=== PATIENT | female | born 1970 | race Hispanic/Latino ===

== ENCOUNTER 2017-05-04 06:09 | Day surgery (SDC) | payer MEDICAID ==
[~2017-05-04] VITALS: Ht 154.9 cm; Wt 77.5 kg
[~2017-05-04 06:09] MED LIST: ESOM40CA PO; IBUP-2077 PO; LACT10SO PO; LEVO125 PO
[2017-05-04 06:25] VITALS: BP 139/77
[2017-05-04] MEDS ORDERED: SODIUM CHLORIDE 0.9% 1000ML 1,000 ML IV ONE (06:40)
[2017-05-04] MEDS ORDERED: PROPOFOL 10 MG/ML 20ML VIAL IV ONE ×2 (08:23)
[2017-05-04 08:37] VITALS: BP 121/82
[2017-05-04] MEDS ORDERED: ONDANSETRON HCL 4 MG/2 ML VIAL ONE (09:03)
== END 2017-05-04 09:29 | disposition home or self-care (01) ==
LOC: DAH 06:09
PROVIDERS: ATTEND Internal Medicine
DX: D12.2 Benign neoplasm of ascending colon (principal); D12.4 Benign neoplasm of descending colon; K29.50 Unspecified chronic gastritis without bleeding; E03.9 Hypothyroidism, unspecified; Z98.890 Other specified postprocedural states; Z79.899 Other long term (current) drug therapy; Z90.49 Acquired absence of other specified parts of digestive tract; Z68.33 Body mass index [BMI] 33.0-33.9, adult
CPT/HCPCS: 43239; 45380; 45385; 88305; 88341; 88342; 91035; A4606; A4649; J2405; J2704 ×2; J7030

== ENCOUNTER 2017-05-06 20:15 | Emergency (ER) | payer MEDICAID ==
[2017-05-06 20:45] LABS: BASOPHILS % (AUTO) 0.4 % (0.0-5.0); EOSINOPHILS % (AUTO) 2.1 % (0.0-8.0); HEMATOCRIT 39.3 % (36-48); LYMPHOCYTES % (AUTO) 20.8 % (21.0-51.0); MEAN CORPUSCULAR HEMOGLOBIN 30.7 pg (27.0-33.0); MEAN CORPUSCULAR HGB CONC 34.5 g/dL (32.0-36.0); MEAN CORPUSCULAR VOLUME 89.1 fL (79-99); MONOCYTES % (AUTO) 9.6 % (3.0-13.0); NEUTROPHILS % (AUTO) 67.1 % (40.0-77.0); PLATELET COUNT (AUTO) 262 K/uL (130-400); RED BLOOD CELL COUNT(AUTO) 4.41 MIL/uL (4.00-5.50); RED CELL DISTRIBUTION WIDTH 12.3 % (11.0-15.5); WHITE BLOOD COUNT (AUTO) 8.8 K/uL (4.8-10.8)
[2017-05-06 20:55] LABS: CREATININE 0.6 mg/dL (0.5-1.5); POTASSIUM 3.9 mmol/L (3.5-5.1)
[2017-05-06 20:56] LABS: AMYLASE 57 U/L (25-115); LIPASE 275 U/L (114-286)
[2017-05-06 20:59] LABS: ALBUMIN 3.8 g/dL (3.5-5.0); BILIRUBIN,TOTAL 0.3 mg/dL (0.2-1.0); TOTAL PROTEIN, SERUM 8.2 g/dL (6.0-8.3)
[2017-05-06 21:39] LABS: APPEARANCE,URINE Clear (CLEAR); BILIRUBIN,URINE Negative (NEGATIVE); COLOR,URINE Yellow (YELLOW); GLUCOSE, URINE (UA) Negative (NEGATIVE); KETONES,URINE Negative (NEGATIVE); LEUKOCYTE ESTERASE ,URINE Negative (NEGATIVE); NITRATE,URINE Negative (NEGATIVE); OCCULT BLOOD,URINE Negative (NEGATIVE); PROTEIN,URINE Negative (NEGATIVE)
[2017-05-06] MEDS ORDERED: ONDANSETRON HCL 4 MG/2 ML VIAL ONE (22:46)
[2017-05-06] MEDS ORDERED: FAMOTIDINE/PF 20 MG/2 ML VIAL IV ONE (22:46)
[2017-05-06] MEDS ORDERED: MORPHINE SULFATE 2 MG/ML 1ML SYG ONE (22:46)
[2017-05-07] MEDS ORDERED: KETOROLAC TROMETHAMINE 15MG/ML ONE (01:21)
== END 2017-05-07 03:02 | disposition home or self-care (01) ==
LOC: EDH 20:15
DX: R10.13 Epigastric pain (principal); R11.2 Nausea with vomiting, unspecified; E07.9 Disorder of thyroid, unspecified
CPT/HCPCS: 36415; 71045; 74021; 74176; 80053; 81003; 82150; 83690; 84484; 85025; 93005; 96374; 96375; 99285; J1885; J2405; J3490

== ENCOUNTER 2021-04-07 14:51 | Observation (INO) | payer MEDICAID ==
[~2021-04-07] VITALS: Ht 154.9 cm; Wt 73.5 kg
[~2021-04-07 14:51] MED LIST changes: -LACT10SO PO; +LACT10SO5 PO
[2021-04-07 16:30] LABS: BASOPHILS % (AUTO) 0.4 % (0.0-5.0); EOSINOPHILS % (AUTO) 1.6 % (0.0-8.0); HEMATOCRIT 42.2 % (36-48); LYMPHOCYTES % (AUTO) 16.5 % (21.0-51.0); MEAN CORPUSCULAR HEMOGLOBIN 30.8 pg (27.0-33.0); MEAN CORPUSCULAR HGB CONC 33.4 g/dL (32.0-36.0); MEAN CORPUSCULAR VOLUME 92.1 fL (79-99); MONOCYTES % (AUTO) 7.2 % (3.0-13.0); PLATELET COUNT (AUTO) 236 K/uL (130-400); RED BLOOD CELL COUNT(AUTO) 4.58 MIL/uL (4.00-5.50); RED CELL DISTRIBUTION WIDTH 12.5 % (11.0-15.5)
[2021-04-07] MEDS ORDERED: MORPHINE 2 MG SYG IVP ONE (16:30)
[2021-04-07] MEDS ORDERED: ONDANSETRON 4MG INJ IVP ONE (16:30)
[2021-04-07 16:33] LABS: APPEARANCE,URINE Cloudy (CLEAR); BILIRUBIN,URINE Negative (NEGATIVE); COLOR,URINE Yellow (YELLOW); GLUCOSE, URINE (UA) Negative (NEGATIVE); KETONES,URINE Trace mg/dL (NEGATIVE); LEUKOCYTE ESTERASE ,URINE Trace (NEGATIVE); NITRATE,URINE Negative (NEGATIVE); OCCULT BLOOD,URINE Negative (NEGATIVE); PH,URINE 5.5 (5.0-8.0); PROTEIN,URINE Negative (NEGATIVE)
[2021-04-07 16:38] LABS: CREATININE 0.5 mg/dL (0.5-1.5); POTASSIUM 4.1 mmol/L (3.5-5.1)
[2021-04-07 16:42] LABS: ALBUMIN 4.2 g/dL (3.5-5.0); BILIRUBIN,TOTAL 0.4 mg/dL (0.2-1.0); TOTAL PROTEIN, SERUM 8.1 g/dL (6.0-8.3)
[2021-04-07 16:57] LABS: BACTERIA,URINE Few /HPF (None Seen); MUCUS,URINE Few LPF (None Seen); RBC,URINE 0-1 /HPF (0-1); SQUAMOUS EPITHELIAL CELL,UR Moderate /HPF (0-2)
[2021-04-07] MEDS ORDERED: KETOROLAC 30MG VIAL (30MG/ML) IV ONE (18:00)
[2021-04-07] MEDS ORDERED: HYDROMORPHONE 0.5 MG SYG (0.5MG/0.5ML) IVP ONE (20:30)
[2021-04-07] MEDS: LACTATED RINGERS 1000ML 1,000 ML IV SCH (21:00)
[2021-04-07] MEDS ORDERED: ACETAMINOPHEN 325 MG TAB PO PRN (21:00)
[2021-04-07] MEDS ORDERED: KETOROLAC 30MG VIAL (30MG/ML) IM PRN (21:00)
[2021-04-07] MEDS ORDERED: MORPHINE 2 MG SYG IV PRN (21:00)
[2021-04-07] MEDS: ONDANSETRON 4MG INJ IV PRN (23:15)
[2021-04-07] MEDS ORDERED: LEVO137T2 PO (23:57)
[2021-04-07] MEDS ORDERED: CHOL500050 PO (23:57)
[2021-04-07] MEDS ORDERED: ALEN70TA80 PO (23:57)
[2021-04-07] MEDS ORDERED: SOLI10TA7 PO (23:57)
[2021-04-07] MEDS ORDERED: TRAM-355 PO (23:57)
[2021-04-07] MEDS ORDERED: OMEP40CA21 PO (23:57)
[2021-04-07] MEDS ORDERED: LINA72CA PO (23:57)
[2021-04-08] MEDS: ONDANSETRON 4MG INJ IV PRN ×3 (05:45→20:09)
[2021-04-08 05:51] LABS: BASOPHILS % (AUTO) 0.4 % (0.0-5.0); EOSINOPHILS % (AUTO) 1.2 % (0.0-8.0); HEMATOCRIT 40.3 % (36-48); LYMPHOCYTES % (AUTO) 18.2 % (21.0-51.0); MONOCYTES % (AUTO) 9.3 % (3.0-13.0); NEUTROPHILS % (AUTO) 70.7 % (40.0-77.0); PLATELET COUNT (AUTO) 208 K/uL (130-400); RED BLOOD CELL COUNT(AUTO) 4.43 MIL/uL (4.00-5.50); RED CELL DISTRIBUTION WIDTH 12.2 % (11.0-15.5); WHITE BLOOD COUNT (AUTO) 4.9 K/uL (4.8-10.8)
[2021-04-08 06:42] LABS: CREATININE 0.5 mg/dL (0.5-1.5); MAGNESIUM 2.1 mg/dL (1.80-2.40); PHOSPHORUS 3.6 mg/dL (2.5-4.9); THYROID STIMULATING HORMONE 0.62 uIU/mL (0.36-3.74)
[2021-04-08] MEDS: PANTOPRAZOLE 40 MG/VIAL IVP SCH (09:08)
[2021-04-08] MEDS: LACTATED RINGERS 1000ML 1,000 ML IV SCH ×2 (09:08→20:26)
[2021-04-08] MEDS ORDERED: POLYETHYLENE GLYCOL 3350 17 GM POWD.PACK PO SCH (11:30)
[2021-04-08] MEDS ORDERED: DOCUSATE SODIUM 100 MG CAP PO SCH (11:30)
[2021-04-08] MEDS: CEFTRIAXONE 1G VIAL IVP SCH (12:13)
[2021-04-08 17:00] VITALS: BP 134/80
[2021-04-08] MEDS ORDERED: CHOLECALCIFEROL 1250 MCG PO SCH (19:00)
[2021-04-08 19:50] VITALS: BP 135/89
[2021-04-08] MEDS: HYDROMORPHONE 1 MG INJ IV PRN (20:18)
[2021-04-08 23:28] VITALS: BP 113/67
[2021-04-09] VITALS (20 sets, daily range): BP systolic 107–125; BP diastolic 57–82
[2021-04-09 06:25] LABS: BASOPHILS % (AUTO) 0.3 % (0.0-5.0); EOSINOPHILS % (AUTO) 1.6 % (0.0-8.0); HEMATOCRIT 43.5 % (36-48); LYMPHOCYTES % (AUTO) 21.6 % (21.0-51.0); MEAN CORPUSCULAR HEMOGLOBIN 30.6 pg (27.0-33.0); MEAN CORPUSCULAR HGB CONC 32.9 g/dL (32.0-36.0); MEAN CORPUSCULAR VOLUME 92.9 fL (79-99); MONOCYTES % (AUTO) 8.3 % (3.0-13.0); NEUTROPHILS % (AUTO) 67.9 % (40.0-77.0); PLATELET COUNT (AUTO) 261 K/uL (130-400); RED BLOOD CELL COUNT(AUTO) 4.68 MIL/uL (4.00-5.50); RED CELL DISTRIBUTION WIDTH 12.2 % (11.0-15.5); WHITE BLOOD COUNT (AUTO) 7.1 K/uL (4.8-10.8)
[2021-04-09] MEDS ORDERED: LEVOTHYROXINE 25 MCG TABLET PO SCH (06:30)
[2021-04-09] MEDS ORDERED: LEVOTHYROXINE 125 MCG TABLET PO SCH (06:30)
[2021-04-09 06:36] LABS: CREATININE 0.6 mg/dL (0.5-1.5); MAGNESIUM 2.5 mg/dL (1.80-2.40); POTASSIUM 3.8 mmol/L (3.5-5.1)
[2021-04-09] MEDS ORDERED: NON-FORMULARY MEDICATION 1 EACH (Omeprazole 40 MG) PO SCH (09:00)
[2021-04-09] MEDS ORDERED: POLYETHYLENE GLYCOL 3350 17 GM POWD.PACK PO SCH (09:00)
[2021-04-09] MEDS ORDERED: Solifenacin Succinate 10 MG PO SCH (09:00)
[2021-04-09] MEDS: PANTOPRAZOLE 40 MG/VIAL IVP SCH (09:39)
[2021-04-09] MEDS: ONDANSETRON 4MG INJ IV PRN (09:51)
[2021-04-09] MEDS: HYDROMORPHONE 1 MG INJ IV PRN (09:52)
[2021-04-09] MEDS ORDERED: PROPOFOL 10 MG/ML 20ML VIAL IV ONE (12:14)
[2021-04-09] MEDS: CEFTRIAXONE 1G VIAL IVP SCH (13:26)
[2021-04-15] MEDS ORDERED: Alendronate Sodium 70 MG PO SCH (06:30)
== END 2021-04-09 18:57 | disposition home or self-care (01) ==
LOC: EDH 14:51 → EDHIP 14:52 → 3BH 04-08 16:58 → 3CH 04-09 11:48
PROVIDERS: ADMIT Internal Medicine; ATTEND Internal Medicine
DX: K44.9 Diaphragmatic hernia without obstruction or gangrene (principal); K29.70 Gastritis, unspecified, without bleeding; K76.0 Fatty (change of) liver, not elsewhere classified; K83.8 Other specified diseases of biliary tract; R93.2 Abnormal findings on diagnostic imaging of liver and biliary tract; E03.9 Hypothyroidism, unspecified; E78.00 Pure hypercholesterolemia, unspecified; R11.2 Nausea with vomiting, unspecified; Z20.822 Contact with and (suspected) exposure to COVID-19; E78.5 Hyperlipidemia, unspecified; I10 Essential (primary) hypertension; K31.89 Other diseases of stomach and duodenum; M81.0 Age-related osteoporosis without current pathological fracture; F17.210 Nicotine dependence, cigarettes, uncomplicated; Z90.49 Acquired absence of other specified parts of digestive tract; Z90.710 Acquired absence of both cervix and uterus
CPT/HCPCS: 36415 ×3; 43239; 74176; 76705; 80048 ×2; 80053; 81001; 82948; 83690; 83735 ×2; 84100; 84145; 84443; 85025 ×3; 85651; 86140; 87635; 88305; 88341; 88342; 96361 ×2; 96372; 96374; 96375 ×2; 96376 ×3; 99285; A4215; A4222; A4223; A4606; A4620; A4657; G0378 ×44; J0696 ×2; J1170 ×4; J1885 ×2; J2405 ×6; J3490; J7120; S0164 ×2; C9113; J2704

== ENCOUNTER → 2021-05-14 | Outpatient (CLI) | payer MEDICARE ==
[~2021-05-14] MED LIST changes: +ALEN70TA80 PO; +CHOL500050 PO; -ESOM40CA PO; -IBUP-2077 PO; -LEVO125 PO; +LEVO137T2 PO; +OMEP40CA21 PO; +SOLI10TA7 PO; +TRAM-355 PO
== END | disposition home or self-care (01) ==
LOC: RAH 11:06
PROVIDERS: ATTEND Internal Medicine Gastroenterology
DX: K30 Functional dyspepsia (principal)
CPT/HCPCS: 78264; A9541

== ENCOUNTER → 2021-10-23 | Outpatient (CLI) | payer MEDICARE | END | disposition home or self-care (01) | LOC: RAH 08:05 | PROVIDERS: ATTEND Physician Assistant | DX: G44.89 Other headache syndrome (principal) | CPT/HCPCS: 70551 ==

== ENCOUNTER → 2024-05-08 | Outpatient (CLI) | payer MEDICARE ==
[~2024-05-08] MED LIST changes: +LACT-441 PO; -LACT10SO5 PO; -TRAM-355 PO; +TRAM-543 PO
--- NOTE | 2024-05-08 12:41 | HMCIMG ---
SINUSES COMP 3+VWS REASON: SINUSITIS, UNSPECIFIED ,CHRONIC. COMPARISON: None TECHNIQUE: 4 images of the paranasal sinuses were obtained. FINDINGS: Nasal septum is grossly midline. No evidence of mucoperiosteal thickening or air-fluid level is seen. IMPRESSION: No CT evidence of acute sinusitis is seen.
== END | disposition home or self-care (01) ==
LOC: RAH 11:23
PROVIDERS: ATTEND Family Medicine
DX: J32.9 Chronic sinusitis, unspecified (principal)
CPT/HCPCS: 70220

== ENCOUNTER 2024-07-11 11:14 | Emergency (ER) | payer MEDICARE, MEDICAID ==
[~2024-07-11] VITALS: Ht 160 cm; Wt 68.0 kg
[2024-07-11 13:07] LABS: APPEARANCE,URINE CLEAR (CLEAR); BILIRUBIN,URINE NEGATIVE (NEGATIVE); COLOR,URINE YELLOW (YELLOW); GLUCOSE, URINE (UA) NEGATIVE (NEGATIVE); KETONES,URINE NEGATIVE (NEGATIVE); LEUKOCYTE ESTERASE ,URINE NEGATIVE Leu/uL (NEGATIVE); NITRATE,URINE NEGATIVE (NEGATIVE); OCCULT BLOOD,URINE NEGATIVE (NEGATIVE); PH,URINE 6.5 (5.0-8.0); PROTEIN,URINE NEGATIVE (NEGATIVE); UROBILINOGEN,URINE 0.2 mg/dL (0.2-1.0)
[2024-07-11 13:21] LABS: BASOPHILS # (AUTO) 0.03 K/uL (0.00-0.20); BASOPHILS % (AUTO) 0.4 % (0.0-5.0); EOSINOPHILS # (AUTO) 0.17 K/uL (0.00-0.70); EOSINOPHILS % (AUTO) 2.3 % (0.0-8.0); HEMATOCRIT 44.4 % (36-48); IMMATURE GRANULOCYTE ABSOLUTE 0.02 K/uL (0-1); LYMPHOCYTES # (AUTO) 1.7 K/uL (1.0-4.8); LYMPHOCYTES % (AUTO) 22.6 % (21.0-51.0); MEAN CORPUSCULAR HEMOGLOBIN 31.9 pg (27.0-33.0); MEAN CORPUSCULAR HGB CONC 32.9 g/dL (32.0-36.0); MEAN CORPUSCULAR VOLUME 97.2 fL (79-99); MONOCYTES # (AUTO) 0.5 K/uL (0.1-1.0); MONOCYTES % (AUTO) 6.8 % (3.0-13.0); NEUTROPHILS % (AUTO) 67.6 % (40.0-77.0); PLATELET COUNT (AUTO) 258 K/uL (130-400); RED BLOOD CELL COUNT(AUTO) 4.57 MIL/uL (4.00-5.50); RED CELL DISTRIBUTION WIDTH 12.7 % (11.0-15.5); WHITE BLOOD COUNT (AUTO) 7.4 K/uL (4.8-10.8)
[2024-07-11 13:29] LABS: CREATININE 0.5 mg/dL (0.5-1.0)
[2024-07-11 13:32] LABS: BACTERIA,URINE RARE /HPF (None Seen); MUCUS,URINE FEW LPF (None Seen); OTHER CASTS, URINE 1 /LPF (None Seen); SQUAMOUS EPITHELIAL CELL,UR FEW /HPF (0-2)
[2024-07-11] MEDS: 0.9%NACL 1000ML 1,000 ML IV ONE (13:41)
[2024-07-11] MEDS: DiphenhydrAMINE HCL 50 MG/ML VIAL IV ONE (13:41)
[2024-07-11] MEDS: metoCLOPRAmide 10 MG/2 ML VIAL IVP ONE (13:41)
--- NOTE | 2024-07-11 14:03 | HMCIMG ---
US VENOUS DOPPLER UNILATERAL HISTORY: DVT COMPARISON: None TECHNIQUE: Left lower extremity venous Doppler ultrasound study was performed. FINDINGS: The left common femoral, femoral, popliteal, and posterior tibial veins are visualized. Normal flow with augmentation and compressibilities are demonstrated. Thrombus is seen in the left greater saphenous vein suspicious for superficial thrombophlebitis. IMPRESSION: 1. No evidence of deep venous thrombosis is seen. Thrombus is seen in the left greater saphenous vein suspicious for superficial thrombophlebitis.
--- NOTE | 2024-07-11 14:28 | EKG ---
[facility] Test Date: 2024-07-11 Test Time: 12:45:05 Pat Name: GALEN KILPATRIKC Department: [facility] Room: Gender: F Remodeler: [id number] : 1970 Requested By: KATHRYN SWAIN Order Number: [id number] Reading MD: Paige Ríos Measurements Intervals Valentine Rate: 70 P: 61 [place]: 136 QRS: 9 QRSD: 74 T: 35 QT: 417 QTc: 451 Interpretive Statements Sinus rhythm Low voltage, precordial leads Compared to ECG 05/06/2017 23:14:19 Low QRS voltage now present Electronically Signed On 07-12-2024 13:22:04 CDT by Paige Ríos Please click the below link to view image of tracing.
--- NOTE | 2024-07-11 15:48 | ERN ---
General Chief Complaint: Lower Extremity Pain/Injury Stated Complaint: HIGH BLOOD PRESSURE, HEADACHE, HX OF STROKE Time Seen by MD: 11:15 Time Seen by Midlevel: 11:15 Source: patient History of Present Illness Initial Comments 53-year-old female who presents to the emergency department due to left lower extremity pain and swelling onset one month. Patient states she had a procedure done by Dr. Nolasco due to DVT. Patient states she initiated with chest pain and headache yesterday after getting upset. Chest pain resolved and denies any current pain. PMHx HTN, hypothyroidism, hypercholesterolemia Allergies: Coded Allergies: No Known Drug Allergies (Unverified Allergy, Unknown, 05/03/17) Home Meds Reported Medications Tramadol HCl/Acetaminophen (Tramadol-Acetaminophn 37.5-325) 1 Each Tablet, 1 EA CH PO Q4HPRN PRN for PAIN LEVEL 4 TO 6, TAB 04/07/21 Omeprazole (Omeprazole) 40 Mg Capsule.dr, 40 MG PO DAILY, CAP 04/07/21 Levothyroxine Sodium (Levothyroxine Sodium) 137 Mcg Tablet, 137 MCG PO DAILY, TAB 04/07/21 Cholecalciferol (Vitamin D3) (Vitamin D3) 1,250 Mcg Capsule, 1250 MCG PO AD, CAP 04/07/21 Solifenacin Succinate (Solifenacin Succinate) 10 Mg Tablet, 10 MG PO DAILY, TAB 04/07/21 Alendronate Sodium (Alendronate Sodium) 70 Mg Tablet, 70 MG PO QWEEK, TAB 04/07/21 Lactulose (Lactulose) 10 Gm/15 Ml Solution, 5 ML PO HS, ML 05/03/17 Past Medical History Past Medical History: High Cholesterol, Hypertension, Hypothyroid, Other Medical History Other: osteoporosis, hiatal hernia , urinary incontinence Past Surgical History: Appendectomy, Hysterectomy, Cholecystectomy, Other, BTL Surgical History Other: BLADDER LIFT X 3, HERNIA REPAIR X 4 Social History Social History: Lives with family Female( History) History: Not Applicable ROS Dictation Constitutional: Negative for fever,chills, and weight loss Eyes: Negative for injury, pain,redness, and discharge ENT: Negative for injury,pain or swelling Cardiovascular: Positive for chest pain Negative for palpitations, and edema Respiratory: Negative for shortness of breath, cough, and wheezing, Abdomen/GI: Negative for abdominal pain, nausea, vomiting, diarrhea, and constipation Back: Negative for injury and pain : Negative for painful urination, bleeding or discharge MS/Extremity: Positive for left lower extremity pain and swelling Negative for injury and deformity Skin: Negative for rash, and discoloration Neuro: Positive for headache Negative for weakness, numbness, tingling, and seizure Psych: Negative for suicide ideation, homicidal ideation, and hallucinations Physical Exam Physical Exam Dictation General: awake, alert, no acute distress Head/Face: Normocephalic, atraumatic Eyes: PERRL, EOMI, normal conjunctiva ENT: oral cavity clear, oral mucosa moist Neck: Supple, normal range of motion Cardiovascular: RRR, normal S1/S2 Respiratory: CTAB, no respiratory distress, no rales or wheezes Skin: Warm, dry, normal turgor, no rash MS/Extremity: Pulses equal, no cyanosis, neurovascular intact, FROM. Left lower ext mild calf tenderness, normal range of motion, no swelling Neuro: COAx4, GCS 15, strength 5/5, CN 2-12 intact, normal cerebellar exam, normal gait Psych: Normal behavior, mood, and affect normal Results Laboratory and Microbiology Lab and Micro Result Laboratory Tests Test 07/11/24 12:55 07/11/24 13:00 07/11/24 14:11 Urine Color YELLOW (YELLOW) Urine Appearance CLEAR (CLEAR) Urine pH 6.5 (5.0-8.0) Urine Specific [place] 1.024 (1.001-1.031) Urine Protein NEGATIVE mg/dL (NEGATIVE) Urine Glucose (UA) NEGATIVE mg/dL (NEGATIVE) Urine Ketones NEGATIVE mg/dL (NEGATIVE) Urine Occult Blood NEGATIVE (NEGATIVE) Urine Nitrate NEGATIVE (NEGATIVE) Urine Bilirubin NEGATIVE mg/dL (NEGATIVE) Urine Urobilinogen 0.2 mg/dL (0.2-1.0) Urine Leukocyte Esterase NEGATIVE Chantelle/uL Urine RBC 2-5 /HPF (0-1) H Urine WBC 2-5 /HPF (0-1) H Urine Squamous Epithelial Cells FEW /HPF (0-2) Urine Bacteria RARE /HPF (None Seen) Urine Other Casts 1 /LPF (None Seen) White Blood Count 7.4 K/uL (4.8-10.8) Red Blood Count 4.57 MIL/uL (4.00-5.50) Hemoglobin 14.6 g/dL (12.0-16.0) Hematocrit 44.4 % (36-48) Mean Corpuscular Volume 97.2 fL (79-99) Mean Corpuscular Hemoglobin 31.9 pg (27.0-33.0) Mean Corpuscular Hemoglobin Concent 32.9 g/dL (32.0-36.0) Red Cell Distribution Width 12.7 % (11.0-15.5) Platelet Count 258 K/uL (130-400) Mean Platelet Volume 10.0 fL (7.5-10.5) Immature Granulocyte % (Auto) 0.3 % (0-1) Neutrophils (%) (Auto) 67.6 % (40.0-77.0) Lymphocytes (%) (Auto) 22.6 % (21.0-51.0) Monocytes (%) (Auto) 6.8 % (3.0-13.0) Eosinophils (%) (Auto) 2.3 % (0.0-8.0) Basophils (%) (Auto) 0.4 % (0.0-5.0) Neutrophils # (Auto) 5.0 K/uL (1.8-7.7) Lymphocytes # (Auto) 1.7 K/uL (1.0-4.8) Monocytes # (Auto) 0.5 K/uL (0.1-1.0) Eosinophils # (Auto) 0.17 K/uL (0.00-0.70) Basophils # (Auto) 0.03 K/uL (0.00-0.20) Absolute Immature Granulocyte (auto 0.02 K/uL (0-1) Nucleated Red Blood Cells 0.0 % (0.0-0.19) Sodium Level 137 mmol/L (136-145) Potassium Level 4.0 mmol/L (3.5-5.1) Chloride Level 102 mmol/L (101-111) Carbon Dioxide Level 31 mmol/L (21-32) Blood Urea Nitrogen 14 mg/dL (7-18) Creatinine 0.5 mg/dL (0.5-1.0) Glomerular Filtration Rate Calc 111 mL/min (>90) Random Glucose 83 mg/dL (70-105) Total Calcium 9.1 mg/dL (8.5-10.1) Troponin I High Sensitivity 44 ng/L (4-50) 8 ng/L (4-50) Labs Reviewed?: Yes EKG/XRAY/US/CT/MRI EKG Comment Date: 07/10/24 Time:12:45 Rate: 70 EKG interpretation: Sinus rhythm, no STEMI Reviewed by ED Attending Ultrasound Comment REASON: R/O DVT ORDERING PHYSICIAN: KATHRYN SWAIN PROCEDURE: VENOUS UNI - US VENOUS DOPPLER UNILATERAL US VENOUS DOPPLER UNILATERAL HISTORY: DVT COMPARISON: None TECHNIQUE: Left lower extremity venous Doppler ultrasound study was performed. FINDINGS: The left common femoral, femoral, popliteal, and posterior tibial veins are visualized. Normal flow with augmentation and compressibilities are demonstrated. Thrombus is seen in the left greater saphenous vein suspicious for superficial thrombophlebitis. IMPRESSION: 1. No evidence of deep venous thrombosis is seen. Thrombus is seen in the left greater saphenous vein suspicious for superficial thrombophlebitis. DICTATED BY: NANCY MARTINEZ MD DATE: 07/11/24 1359 [facility] MDM: Differential diagnosis: DVT, postprocedure pain, headache, migraine, ACS Rationale: 53-year-old female who presents to the emergency department due to left lower extremity pain and swelling onset one month. Patient states she had a procedure done by Dr. Nolasco due to DVT. Patient states she initiated with chest pain and headache yesterday after getting upset. Chest pain resolved and denies any current pain. PMHx HTN, hypothyroidism, hypercholesterolemia Vital stable during ED course. Per physical examination patient has mild tenderness to the left calf, neurologically intact, neurovascularly intact, normal range of motion. IV fluids and Reglan administered. Labs obtained CBC and chemistry within normal limits, UA negative for urinary tract infection. Initial troponin 44, repeat trop eight. Left lower extremity ultrasound obtained negative for DVT shows thrombus in the left greater saphenous vein susp icious for superficial thrombophlebitis. Dr. Nolasco consulted. ED course delayed due to pending call back from Dr. Nolasco's office. Per office staff, he recommends patient to follow up in clinic for her at appointment July 18, place Mehrdad wrap on patient and educated her on lower extremity elevation, no anticoagulant or any medications to be prescribed. Patient was educated on findings, diagnosis and Dr. Nolasco's recommendation. Advised to follow up PCP. Return to the emergency department if any worsening symptoms. Pt stated headache resolved, denies chest pain at the moment. She verbalized understanding, stable for discharge. There are no social concerns with this patient. I independently interpreted the test that were performed, results were reviewed by me and considered findings on radiology if ordered. Medical management and examination interpretation discussions were had by me with other qualified healthcare professionals as indicated for the patient's care. ED Course Orders Procedure Category Date Status Time Cbc With Differential LAB 07/11/24 Complete 11:51 Basic Metabolic Panel LAB 07/11/24 Complete 11:51 Us Venous Doppler US 07/11/24 Resulted Unilateral 11:51 Troponin I High LAB 07/11/24 Complete Sensitivity 11:51 12 Lead Ekg Tracing- EKG 07/11/24 Complete Technical 11:51 Urinalysis LAB 07/11/24 Complete W/Microscopic 11:51 0.9%Nacl 1000ml (Ns PHA 07/11/24 Complete 1000ml) 12:00 Metoclopramide 10 PHA 07/11/24 Complete Mg/2 Ml Vial (Reglan 1 12:00 Diphenhydramine Hcl PHA 07/11/24 Complete (Benadryl Inj) 12:00 Troponin I High LAB 07/11/24 Complete Sensitivity 14:02 Current Medications Medications (Trade) Dose Ordered Sig/Fernando Route PRN Reason Start Time Stop Time Status Last Admin Dose Admin Diphenhydramine HCl (BENAdryl INJ) 25 mg ONCE ONCE IV 07/11/24 12:00 07/11/24 12:01 DC 07/11/24 13:41 Metoclopramide HCl (regLAN 10MG IV) 10 mg ONCE ONCE IVP 07/11/24 12:00 07/11/24 12:01 DC 07/11/24 13:41 Sodium Chloride 1,000 ml @ 0 mls/hr ONCE ONCE IV 07/11/24 12:00 07/11/24 12:01 DC 07/11/24 13:41 Vital Signs Date Time Temp Pulse Resp B/P (MAP) Pulse Ox O2 Delivery O2 Flow Rate FiO2 07/11/24 16:28 98.2 72 16 128/72 98 Room Air* 0 21 07/11/24 11:52 98.2 79 16 139/79 98 Room Air 0 07/11/24 11:45 98.2 79 16 139/79 100 Room Air* 0 21 DX & DISP Disposition: Discharge Departure Impression: Primary Impression: Superficial thrombophlebitis Condition: Stable Additional Instructions: Discharge home. Rest. Follow up with primary care DrDiane in 24 hours. Return to the ER for any acute changes or worsening symptoms. If any medications were prescribed take as directed. Okay to continue home medications unless otherwise discussed during your visit in the emergency room today. Patient was also advised to follow-up with primary care physician in 1 to 2 days for continued monitoring. Referrals: HUY VEGA DO (PCP) I performed the substantive portion of the visit. I have reviewed and personally made and approve the management plan that is documented in the notes by myself or the TAYE. I acknowledge full responsibility for the patient's management plan. KATHRYN SWAIN Jul 11, 2024 15:48 CORI LOMAX DO July 12, 2024 09:51
--- NOTE | 2024-07-11 16:12 | NUR ---
MERCEDES WRAP APPLIED TO TO PT LT LOWER EXT, PT TOLERATED WELL
[2024-07-11 16:28] VITALS: BP 128/72; PULSE 72; RESP 16; TEMP 98.2; O2SAT 98
== END 2024-07-11 16:29 | disposition home or self-care (01) ==
LOC: EDH 11:14
DX: I80.02 Phlebitis and thrombophlebitis of superficial vessels of left lower extremity (principal); E03.9 Hypothyroidism, unspecified; E78.00 Pure hypercholesterolemia, unspecified; I10 Essential (primary) hypertension; M81.0 Age-related osteoporosis without current pathological fracture; Z79.890 Hormone replacement therapy; Z79.899 Other long term (current) drug therapy; Z86.73 Personal history of transient ischemic attack (TIA), and cerebral infarction without residual deficits; Z90.49 Acquired absence of other specified parts of digestive tract; Z90.710 Acquired absence of both cervix and uterus; Z98.890 Other specified postprocedural states
CPT/HCPCS: 99285; 96374; 93971; 96375; 84484 ×2; 80048; 85025; 81001; 36415; 93005; J1200; J7030; J2765